=== PATIENT | female | born 1990 | race Caucasian/White ===

== ENCOUNTER 2016-05-14 17:23 | Emergency (ER) | payer SELFPAY ==
[2016-05-15] MEDS ORDERED: ONDANSETRON 4 MG VIAL ONE (00:27)
[2016-05-15] MEDS ORDERED: SODIUM CHLORIDE 0.9% 1,000 ML ONE (00:28)
== END 2016-05-15 03:45 | disposition home or self-care (01) ==
LOC: ER 17:23
CPT/HCPCS: 76817; 96361; 96374

== ENCOUNTER 2016-06-17 18:01 | Emergency (ER) | payer SELFPAY ==
[2016-06-17] MEDS ORDERED: ONDANSETRON 4 MG VIAL ONE (18:45)
[2016-06-17] MEDS ORDERED: SODIUM CHLORIDE 0.9% 1,000 ML ONE (18:45)
== END 2016-06-17 20:19 | disposition home or self-care (01) ==
LOC: ER 18:01
DX: O21.9 Vomiting of pregnancy, unspecified (principal); Z3A.12 12 weeks gestation of pregnancy
CPT/HCPCS: 36415; 80053; 81003; 85025; 96361; 96374